=== PATIENT | male | born 1985 | race Caucasian/White ===

== ENCOUNTER 2021-01-14 12:56 | Emergency (ER) | payer BC, SELFPAY ==
[2021-01-14 13:00] VITALS: BP 136/80; PULSE 68; RESP 18; TEMP 36.9; O2SAT 100; BMI 28.2
--- NOTE | 2021-01-14 14:02 | HMH.EDUTC ---
[facility] [place] Disposition Clinical Impression: Shingles rash Qualifiers: Herpes zoster complications: without complications Qualified Code(s): B02.9 - Zoster without complications Disposition: Home, Self-Care Condition on Discharge: Good Instructions: DI for Shingles, Shingles, Acyclovir Additional Instructions: Take medication as prescribed Make sure to follow up with your Family Doctor if no improvement or any worsening of symptoms Avoid ladies while you are having an outbreak Return if needed Straight to ER if any life threatening symptoms Prescriptions: Acyclovir 800 mg PO 5XDAY 7 Days #35 tab Transmission Status: Pending to [facility] Referrals: Shahid Moreira MD [Primary Care Provider] - As needed Time of Disposition: 14:12 Medical Decision Making - Anderson Inquiry Pt receiving controlled substance: No Anderson was queried for this patient: No Vital Signs: 01/14/21 13:00 Temperature 98.4 F Temperature Source Oral Pulse Rate [Right Brachial] 68 Respiratory Rate 18 Blood Pressure [Right Arm] 136/80 Blood Pressure Mean [Right Arm] 98 Blood Pressure Source [Right Arm] Automatic Cuff Blood Pressure Position [Right Arm] Sitting 02 Sat by Pulse Oximetry 100 Oxygen Delivery Method Room Air [facility] [place] HPI - General Stated complaint: possible shingles Time Seen by Provider: 01/14/21 14:02 Mode of Arrival: Ambulatory Source of Information: Patient Limitations: No Limitations Description of Symptoms (Recalled from Triage Doc. by RN): PATIENT C/O SCABS TO SIDE X 3 DAYS HEENT Symptoms (Recalled from RN notes): No Resp Symptoms (Recalled from RN notes): No Skin Symptoms (Recalled from RN notes): Yes MS Symptoms (Recalled from RN notes): No Functional Status (Recalled from RN notes): WNL - History of Present Illness Provider Complaint: Patient states that he noticed he was breaking out in rash on his right side that looked blistery and hurts when he touches, scratches it or his shirt touches it States that and it is sore States that thinks it may be shingles coming out and he has never had it - Related Data Previous Rx's Medication Instructions Recorded Acyclovir 800 mg PO 5XDAY 7 Days #35 tab 01/14/21 Allergies Allergy/AdvReac Type Severity Reaction Status Date / Time No Known Allergies Allergy Verified 06/04/20 10:26 - Worker's Comp Is this a Worker's Comp case?: No [facility] History - Hepatitis A Screen Drug use history?: No High risk sexual behaviors?: No History of sexually transmitted infection?: No Currently employed?: No Childcare worker?: No Do you have indoor plumbing?: Yes Do you have electricity?: Yes Attestation statement:: This patient has been screened for Hepatitis A risk factors. I have reviewed the patient's past medical history: Yes Medical History: Reports:: Hypertension Other Surgeries: Yes: Appendectomy Amputation: No Fractures: No - Social History Smoking Status: Never smoker Alcohol Intake: never Substance Use Type: denies use Occupational Status: employed Housing: house Family Hx:: No significant family history ROS Obtained: Yes All systems reviewed & no additional complaints, Yes Systems reviewed as appropriate & no additional complaints - Constitutional Constitutional: Reports system reviewed and no additional complaints, except as docu, Denies body ache, Denies chills, Denies fever(s) - ENT Ears, Nose, Mouth, and Throat: Reports system reviewed and no additional complaints, except as docu - Cardiovascular Cardiovascular: Reports system reviewed and no additional complaints, except as docu - Respiratory Respiratory: Reports system reviewed and no additional complaints, except as docu - Gastrointestinal Gastrointestingal: Reports: system reviewed and no additional complaints, except as docu - Musculoskeletal Musculoskeletal: Reports system reviewed and no additional complaints, except as docu - Integumentary/Breasts Skin/Patricia
[2021-01-14 14:25] VITALS: BP 136/80; PULSE 68; RESP 18; TEMP 36.9; O2SAT 100
== END 2021-01-14 14:32 | disposition home or self-care (01) ==
PROVIDERS: Emergency Provider Nurse Practitioner; PCP Family Medicine
DX: B02.9 Zoster without complications (principal)
CPT/HCPCS: 99202; G0463

== ENCOUNTER 2021-02-08 19:02 | Emergency (ER) | payer BC, SELFPAY ==
[2021-02-08 20:03] VITALS: BP 146/101; PULSE 78; RESP 18; TEMP 36.9; O2SAT 99; BMI 29.8
[2021-02-08 20:23] VITALS: BP 146/101; PULSE 78; RESP 18; TEMP 36.9
[2021-02-08 20:27] LABS: UTC Strep Screen (Rapid) Positive (Negative)
--- NOTE | 2021-02-08 20:55 | HMH.EDUTC ---
[facility] [place] [place] Disposition Clinical Impression: Strep throat Disposition: Home, Self-Care Condition on Discharge: Good Instructions: DI for Strep Throat Additional Instructions: Drink plenty of fluids. Take tylenol or ibuprofen for pain or fever. Take the medications as directed. Follow up with your regular doctor. GO TO THE ER FOR ANY WORSENING SYMPTOMS Throw your tooth brush away and get a new one. Prescriptions: Ondansetron [Zofran 4mg ODT] 4 mg PO Q8HP PRN #20 tab PRN Reason: Nausea Transmission Status: Received by [facility] Amoxicillin/Potassium Clav [Augmentin 875-125 Tablet] 1 tab PO Q12H 10 Days #20 tab Transmission Status: Received by [facility] Referrals: Sherif Cody MD [Primary Care Provider] - Forms: Work/School Release Time of Disposition: 20:58 Medical Decision Making - Medical Records Medical records reviewed: No: I reviewed the patient's medical records. - Anderson Inquiry Pt receiving controlled substance: No Vital Signs: 02/08/21 20:03 02/08/21 20:23 Temperature 98.4 F 98.4 F Temperature Source Oral Pulse Rate 78 Pulse Rate [Left] 78 Respiratory Rate 18 18 Blood Pressure 146/101 H Blood Pressure [Right Arm] 146/101 H Blood Pressure Mean [Right Arm] 116 02 Sat by Pulse Oximetry 99 - Lab Data Lab results reviewed: Yes: I reviewed the patient's lab results. Lab Results 02/08/21 20:27: Strep Scn Rapid [facility] Positive A Orders (Tests/Meds): ED MEDICATIONS Discontinued Medications Generic Name Dose Route Start Last Admin Trade Name Freq PRN Reason Stop Dose Admin Ondansetron HCl 4 mg 02/08/21 20:54 02/08/21 20:59 Ondansetron 4mg Odt SL 02/08/21 20:55 4 mg ONCE ONE Administration [facility] [place] [place] HPI - General Stated complaint: sore throat,cpugh,vomitinh,abd pain.ongestion Time Seen by Provider: 02/08/21 20:55 Mode of Arrival: Ambulatory Source of Information: Patient Limitations: No Limitations Description of Symptoms (Recalled from Triage Doc. by RN): pt c/o cough, congestion and sore throat. HEENT Symptoms (Recalled from RN notes): Yes (congestion and sore throat) Resp Symptoms (Recalled from RN notes): Yes (cough) Skin Symptoms (Recalled from RN notes): No MS Symptoms (Recalled from RN notes): No Functional Status (Recalled from RN notes): wnl - History of Present Illness Provider Complaint: He c/o sore throat and feeling bad for the past 2 days. He has had n/v/d also today. He has had chilling but no documented fever. - Related Data Previous Rx's Medication Instructions Recorded Acyclovir 800 mg PO 5XDAY 7 Days #35 tab 01/14/21 Amoxicillin/Potassium Clav 1 tab PO Q12H 10 Days #20 tab 02/08/21 [Augmentin 875-125 Tablet] Ondansetron [Zofran 4mg ODT] 4 mg PO Q8HP PRN #20 tab 02/08/21 Allergies Allergy/AdvReac Type Severity Reaction Status Date / Time No Known Allergies Allergy Verified 06/04/20 10:26 - Worker's Comp Is this a Worker's Comp case?: No [facility] History - Hepatitis A Screen Drug use history?: No High risk sexual behaviors?: No History of sexually transmitted infection?: No Currently employed?: No Childcare worker?: No Do you have indoor plumbing?: Yes Do you have electricity?: Yes Attestation statement:: This patient has been screened for Hepatitis A risk factors. I have reviewed the patient's past medical history: Yes Medical History: Reports:: Hypertension Other Surgeries: Yes: Appendectomy Amputation: No Fractures: No - Social History Smoking Status: Never smoker Alcohol Intake: never Substance Use Type: denies use Occupational Status: employed Housing: house Family Hx:: No significant family history ROS Obtained: Yes All systems reviewed & no additional complaints - Constitutional Constitutional: Reports as per HPI - Eyes Eyes: Denies eye discharge - ENT Ears, Nose, Mouth, and Throat: Reports as per HPI - Cardiovascular Cardiovascular: De
--- NOTE | 2021-02-10 12:47 | PC.NURSE ---
attempted to reach about positive covid test results, unable to reach at this time.
== END 2021-02-08 21:15 | disposition home or self-care (01) ==
PROVIDERS: Emergency Provider Nurse Practitioner Family; PCP Emergency Medicine
DX: U07.1 COVID-19 (principal); J02.0 Streptococcal pharyngitis
CPT/HCPCS: 87880; 99203; C9803; G0463; U0003; U0005

== ENCOUNTER 2021-02-11 16:42 | Emergency (ER) | payer BC, SELFPAY ==
[2021-02-11 16:43] VITALS: BP 138/98; PULSE 98; RESP 16; TEMP 38.7; O2SAT 98; BMI 29.8
--- NOTE | 2021-02-11 17:13 | HMH.EDFEV ---
ED Disposition Clinical Impression: Gastroenteritis, COVID-19 Disposition: Home, Self-Care Condition on Discharge: Good Instructions: DI for COVID-19 (Suspected or Confirmed ) Prescriptions: Ondansetron [Zofran 4mg ODT] 4 mg PO BIDP PRN #10 tab PRN Reason: Nausea Transmission Status: Pending to [facility] Referrals: Sherif Cody MD [Primary Care Provider] - - Critical Care Critical Care Time: No Attestation: On 02/11/21, the high probability of a clinically significant, sudden or life threatening deterioration of the following system(s) required my full and direct attention, intervention and personal management. The time I documented below is in addition to time spent performing reported procedures but includes the following listed in this critical care notation. Medical Decision Making - Medical Records Medical records reviewed: Yes: I reviewed the patient's medical records. - Anderson Inquiry Pt receiving controlled substance: No Vital Signs: 02/11/21 16:43 Temperature 101.7 F H Temperature Source Oral Pulse Rate [Radial] 98 H Respiratory Rate 16 Blood Pressure [Right Arm] 138/98 H Blood Pressure Mean [Right Arm] 111 Blood Pressure Position [Right Arm] Sitting 02 Sat by Pulse Oximetry 98 Oxygen Delivery Method Room Air Orders (Tests/Meds): ED MEDICATIONS Generic Name Dose Route Start Last Admin Trade Name Freq PRN Reason Stop Dose Admin Sodium Chloride 1,000 mls @ 999 mls/hr 02/11/21 17:15 02/11/21 17:22 Sod Chlor 0.9% 1000ml Bag IV 02/11/21 18:15 999 mls/hr .Q1H1M JOHANA Administration Discontinued Medications Generic Name Dose Route Start Last Admin Trade Name Freq PRN Reason Stop Dose Admin Ketorolac Tromethamine 30 mg 02/11/21 17:10 02/11/21 17:21 Ketorolac 30mg/Ml Vial IV 02/11/21 17:11 30 mg ONCE ONE Administration Ondansetron HCl 4 mg 02/11/21 17:10 02/11/21 17:21 Ondansetron 4mg/2ml Vial IV 02/11/21 17:11 4 mg ONCE ONE Administration - Reevaluation(s) Time: 18:15 Reevaluation #1: On reevaluation, patient is feeling much better. There is no respiratory distress. No desaturation with ambulation. Repeat abdominal exam is benign. Patient tolerating oral intake. He is to maintain quarantine guidelines per CDC recommendation. Needs follow-up with PCP in 48 hours. Given strict return precautions. Verbalized understanding. Medical Decision Narrative: 35-year-old male presented to the emergency department with coronavirus diagnosis. The patient is currently febrile. He has no respiratory distress or hypoxia. Patient be treated symptomatically and reevaluated. Fever HPI - General Chief Complaint: Fever Stated Complaint: Cov+, Vomiting, feverr Time Seen by Provider: 02/11/21 16:45 Mode of Arrival: Ambulatory Limitations: No Limitations Description of Symptoms (Recalled from ER Triage Doc. by RN): to ed per pvt car pt states seen 02/08 dx with covid and strep throat states I don't feel any better . c/o fever, chills, nausea, vomiting. states he has been unable to keep down fluids. - History of Present Illness HPI Narrative: This is a 35-year-old male presented to the emergency department with some flulike symptoms. The patient states that he was diagnosed with Covid 4 days ago. He was also diagnosed with strep throat at that time. The patient was placed on amoxicillin. He states that he just not has felt well since then. The patient has had some nausea, vomiting. Feels he cannot keep anything down. He has low energy. He has had some full body myalgias. Patient endorses a mild cough, however no productive nature. Is not having any significant shortness of breath or respiratory distress. Had some subjective fevers and chills. Denies any headache or change in vision. No focal weakness. No neck pain. - Related Data Previous Rx's Medication Instructions Recorded Acyclovir 800 mg PO 5XDAY 7 Days #35 tab
[2021-02-11 17:15] VITALS: BP 137/85; PULSE 92; O2SAT 98
[2021-02-11 18:00] VITALS: BP 133/79; PULSE 81; O2SAT 95
[2021-02-11 18:30] VITALS: BP 123/74; PULSE 89; RESP 20; TEMP 38.1; O2SAT 98
== END 2021-02-11 18:32 | disposition home or self-care (01) ==
PROVIDERS: Emergency Provider Emergency Medicine; PCP Emergency Medicine
DX: K52.9 Noninfective gastroenteritis and colitis, unspecified (principal); U07.1 COVID-19
CPT/HCPCS: 96365; 96375; 99281; J2405

== ENCOUNTER → 2021-02-18 13:16 | Outpatient (CLI) | payer BC, SELFPAY | PROVIDERS: PCP Emergency Medicine; Visit Provider Nurse Practitioner | DX: Z20.822 Contact with and (suspected) exposure to COVID-19 (principal) | CPT/HCPCS: C9803; U0003; U0005 ==

== ENCOUNTER 2022-05-20 17:12 | Emergency (ER) | payer BC, SELFPAY ==
[2022-05-20 17:45] VITALS: BP 139/99; PULSE 74; RESP 20; TEMP 36.8; O2SAT 97; BMI 30.8
[2022-05-20 18:02] LABS: UTC Strep Screen (Rapid) Positive (Negative)
--- NOTE | 2022-05-20 18:07 | EXP.UTC ---
Discharge Plan Disposition Patient Disposition: Home, Self-Care Condition: Good Prescriptions Prescriptions: New prednisone 10 mg tablet 10 mg PO BID 3 Days Qty: 6 0RF amoxicillin [amoxicillin] 875 mg tablet 875 mg PO Q12H Qty: 20 0RF benzonatate [benzonatate] 100 mg capsule 100 mg PO TIDP PRN (Reason: Cough) Qty: 30 0RF Referrals Follow up/Referrals: Sherif Cody MD [Primary Care Provider] - See instructions Activity Restrictions/Add. Instructions Additional Instructions/Restrictions: Drink plenty of fluids. Take tylenol or ibuprofen for pain or fever. Take the medications as directed. Follow up with your regular doctor. GO TO THE ER FOR ANY WORSENING SYMPTOMS Throw your tooth brush away and get a new one. Clinical Impressions Clinical Impression: Strep throat Instructions Patient Instructions: Strep Throat, DI for Strep Throat Discharge ED Provider: [facility] [place] HPI General Stated complaint: sore throat, cough, h/a, congestion Mode of Arrival: Ambulatory Source of Information: Patient Limitations: No Limitations Time Seen by Provider: 05/20/22 18:07 Description of Symptoms (Recalled from Triage Doc. by RN): sore throat HEENT Symptoms (Recalled from RN notes): Yes Resp Symptoms (Recalled from RN notes): No Skin Symptoms (Recalled from RN notes): No MS Symptoms (Recalled from RN notes): No Functional Status (Recalled from RN notes): n/a History of Present Illness Provider Complaint: he states that for the past 3 days he has had a very sore throat. Related Data Previous Rx's Medication Instructions Recorded amoxicillin 875 mg tablet 875 mg PO Q12H #20 tabs 05/20/22 benzonatate 100 mg capsule 100 mg PO TIDP PRN Cough #30 caps 05/20/22 prednisone 10 mg tablet 10 mg PO BID 3 days #6 tabs 05/20/22 Allergies Allergy/AdvReac Type Severity Reaction Status Date / Time No Known Allergies Allergy Verified 05/20/22 18:02 Worker's Comp Is this a Worker's Comp case?: No [facility] Disclaimer: The information contained in this section may have been updated after the patient was seen, as this information can be updated by other users. Social History Smoking Status: Never smoker alcohol intake: never substance use type: denies use current occupational status: employed Travel in the last 8 weeks: None housing: house ROS Obtained: Yes All systems reviewed & no additional complaints except as documented Constitutional Constitutional: Reports chills and Reports fever(s) Eyes Eyes: Denies eye discharge ENT Ears, Nose, Mouth, and Throat: Reports as per HPI Cardiovascular Cardiovascular: Denies chest pain Respiratory Respiratory: Denies chest congestion and Reports cough Gastrointestinal Gastrointestingal: Reports nausea; Denies abdominal pain, constipation, cramping, diarrhea or vomiting Musculoskeletal Musculoskeletal: Denies arthralgias Integumentary/Breasts Skin/Breast: Denies rash Neurologic Neurologic: Denies paresthesias Physical Exam General General appearance: alert and in no apparent distress Head Head exam: atraumatic, normocephalic and normal inspection Eye Eye exam: Present normal appearance, PERRL and EOMI ENT ENT exam: Present mucous membranes moist and normal external ear exam Expanded ENT Exam TM/Canal exam: Bilateral TM: erythema and bulging Nose exam: Absent sinus tenderness Mouth exam: Present normal external inspection; Absent drooling Teeth exam: Present normal inspection Throat exam: Present tonsillar erythema, tonsillomegaly and tonsillar exudate Neck Neck exam: Present normal inspection, full ROM and trachea midline; Absent tenderness, meningismus or lymphadenopathy Chest Chest inspection: Present normal inspection and symmetric chest wall rise; Absent tenderness Respiratory Respiratory exam: Present normal lung sounds bilaterally; Absent respiratory distress,
[2022-05-20 18:47] VITALS: BP 139/99; PULSE 74; RESP 20; TEMP 36.8; O2SAT 97
== END 2022-05-20 18:46 | disposition home or self-care (01) ==
PROVIDERS: Emergency Provider Nurse Practitioner Family; PCP Emergency Medicine
DX: J02.0 Streptococcal pharyngitis (principal); R51.9 Headache, unspecified; R11.0 Nausea; R50.9 Fever, unspecified
CPT/HCPCS: 87880; 99212; 99214; G0463

== ENCOUNTER → 2022-06-01 15:33 | Outpatient (CLI) | payer BC, SELFPAY ==
[2022-06-01 15:02] LABS: Alanine Aminotransferase 29 U/L (12-78); Albumin Level 4.3 g/dl (3.5-5.0); Albumin/Globulin Ratio 1.6 (1.1-1.8); Alkaline Phosphatase 141 U/L (38-126); Anion Gap 8.9 mEq/L (5-15); Aspartate Amino Transferase 33 U/L (17-59); Bilirubin,Total 0.6 mg/dl (0.2-1.3); Blood Urea Nitrogen 9 mg/dl (9-20); Calcium 8.5 mg/dl (8.4-10.2); Carbon Dioxide 29 mmol/L (22.0-30.0); Chloride 104 mmol/L (98-107); Estimated Glomerular Filt Rate 94 ml/min (>60); GFR (African American) 114 ML/MIN (>60); Globulin 2.7 g/dL (1.3-3.2); Glucose 98 mg/dl (74-100); Potassium 4.9 mmoL/L (3.5-5.1); Sodium 137 mmol/L (136-145)
[2022-06-01 15:21] LABS: Basophils # 0.1 K/mm3 (0-0.2); Basophils % 1.2 % (0.1-2.0); Eosinophils # 0.2 K/mm3 (0.0-0.4); Eosinophils % 3.2 % (0.1-12.0); Hematocrit 48.5 % (42.0-52.0); Hemoglobin 16.1 g/dL (14.1-18.0); Lymphocytes # 1.9 K/mm3 (0.7-4.5); Lymphocytes % 29.3 % (10-50); Mean Corpuscular HGB Conc 33.1 g/dL (31.8-35.4); Mean Corpuscular Hemoglobin 28.6 pg (27.0-31.2); Mean Corpuscular Volume 86.3 fl (80-94); Mean Platelet Volume 13.5 fl (7.4-10.4); Monocytes # 0.5 K/mm3 (0.1-1.0); Monocytes % 7.8 % (1.7-9.3); Neutrophils # 3.7 K/mm3 (1.8-7.8); Neutrophils % 58.5 % (37.0-80.0); Platelet Count 174 K/mm3 (142-424); Red Blood Count 5.62 M/mm3 (4.60-6.20); Red Cell Distribution Width 13.4 % (11.5-17.5); White Blood Count 6.3 K/mm3 (4.8-10.8)
== END ==
LOC: LAB.DROPOF 15:34
PROVIDERS: PCP Nurse Practitioner Family; Visit Provider Nurse Practitioner Family
DX: R53.83 Other fatigue (principal)
CPT/HCPCS: 80053; 85025

== ENCOUNTER 2023-10-23 17:43 | Emergency (ER) | payer BC, SELFPAY ==
[2023-10-23 18:30] VITALS: BP 144/93; PULSE 63; RESP 19; TEMP 36.7; O2SAT 99; BMI 31.1
--- NOTE | 2023-10-23 18:45 | EXP.UTC ---
Discharge Plan Disposition Patient Disposition: Home, Self-Care Condition: Good Prescriptions Prescriptions: New amoxicillin 875 mg tablet 875 mg PO Q12H Qty: 20 0RF fluticasone propionate [Flonase Allergy Relief] 50 mcg/actuation spray,suspension 1 - 2 spray intranasal DAILY Qty: 16 0RF Rx Instructions: administer into each nostril daily No Action escitalopram oxalate [Lexapro] 20 mg tablet 20 mg PO DAILY Qty: 30 2RF hydroxyzine pamoate 25 mg capsule See Rx Instructions .ROUTE .COMPLEX Qty: 60 0RF Dose Instruction: TAKE 1 CAPSULE BY MOUTH THREE TIMES A DAY NEEDED FOR ITCHING MAY CAUSE DROWSINESS Rx Instructions: TAKE 1 CAPSULE BY MOUTH THREE TIMES A DAY NEEDED FOR ITCHING MAY CAUSE DROWSINESS Referrals Follow up/Referrals: Provider,Referral, MD [Primary Care Provider] - See instructions Activity Restrictions/Add. Instructions Additional Instructions/Restrictions: *Monitor Temp, Over the counter Motrin or Tylenol as directed/as needed Tylenol every 4 hours and Motrin every 6 hours (as long as your family doctor has told you that you can take it) for fever or pain. and straight to ER if unable to lower temp less than 101.0 after medication given *Warm salt water gargles may help to soothe the throat *Throat Lozenges? *Warm fluids like tea with honey may help to soothe the throat? *Sleep elevated *Humidifier/Vaporizer *If you did not take Penicillin shot or was unable to, start taking antibiotic immediately and make sure that you take it for the FULL length of time although you should start to feel better in 24-48 hours *change toothbrush and toothpaste 24-48 hours after starting to take antibiotics so you do not reinfect yourself Monitor Temp. Tylenol and/or Ibuprofen as needed. ER if fever is no less than 101 despite alternating Tylenol and Ibuprofen * Encourage fluids, water, Gatorade, powerade, pedialyte if /toddler/or child *Cold fluids, popsicles and ice cream may feel good on his throat Follow up IMMEDIATELY for new or worsening symptoms or no Noticeable improvement over the next 48-72 hours. 911 for difficulty breathing or swallowing Clinical Impressions Clinical Impression: Strep throat Instructions Patient Instructions: Strep Throat, DI for Strep Throat, Amoxicillin Print Language Print Language: Greenlandic Discharge ED Provider: Gilda Be [facility] [place] HPI General Stated complaint: sore throat diff swallowing Time Seen by Provider: 10/23/23 18:45 History of Present Illness Provider Complaint: Patient states his daughter tested positive for Strep throat over the weekend and now he has started with sore scratchy throat and hurting when he swallows feels like he may have it now also so this evening when he was still not feeling any better he came in to get checked Related Data Previous Rx's ?Medication ?Instructions ?Recorded escitalopram oxalate 20 mg tablet 20 mg PO DAILY #30 tabs 02/09/23 (Lexapro) hydroxyzine pamoate 25 mg capsule See Rx Instructions .Route 03/24/23 .COMPLEX #60 caps amoxicillin 875 mg tablet 875 mg PO Q12H #20 tabs 10/23/23 fluticasone propionate 50 1 - 2 spray intranasal DAILY #16 10/23/23 mcg/actuation nasal grams spray,suspension (Flonase Allergy Relief) Allergies Allergy/AdvReac Type Severity Reaction Status Date / Time No Known Allergies Allergy Verified 02/09/23 15:51 [facility] Disclaimer: The information contained in this section may have been updated after the patient was seen, as this information can be updated by other users. Medical History Gastroenteritis Immunization due Shingles rash Strep throat Social History Smoking Status: Never smoker alcohol intake: never substance use type: denies use current occupational status: employed Travel in the last 8 weeks: None housing: house ROS Obtained: Yes All systems reviewed & no additional complaints except as documented and Yes Systems reviewed as appropriate & no additional complaints except as documented Constitutional Constitutional: Reports system reviewed and no additional complaints, except as documented and Reports as per HPI ENT Ears, Nose, Mouth, and Throat: Reports system reviewed and no additional complaints, except as documented, Reports as per HPI, Reports nasal congestion, Reports nasal discharge and Reports sore throat Cardiovascular Cardiovascular: Reports system reviewed and no additional complaints, except as documented and Reports as per HPI Respiratory Respiratory: Reports system reviewed and no additional complaints, except as documented and Reports as per HPI Gastrointestinal Gastrointestingal: Reports system reviewed and no additional complaints, except as documented and as per HPI Physical Exam General General appearance: alert and in no apparent distress ENT ENT exam: Present mucous membranes moist Expanded ENT Exam Throat exam: Present other (Pharyngeal erythema noted with PND) Respiratory Respiratory exam: Present normal lung sounds bilaterally; Absent respiratory distress or wheezes Cardiovascular Cardiovascular exam: Present regular rate, normal rhythm and normal heart sounds Neurological Exam Neurological exam: Present alert, oriented X3 and normal gait Medical Decision Making Anderson Inquiry Pt receiving controlled substance: No Anderson was queried for this patient: No Lab Data Lab results reviewed: Yes I reviewed the patient's lab results.
[2023-10-23 18:50] LABS: UTC Strep Screen (Rapid) Positive (Negative)
[2023-10-23 18:51] VITALS: BP 144/93; PULSE 63; RESP 19; TEMP 36.7; O2SAT 99
== END 2023-10-23 18:56 | disposition home or self-care (01) ==
PROVIDERS: Emergency Provider Nurse Practitioner
DX: J02.0 Streptococcal pharyngitis (principal); R07.0 Pain in throat
CPT/HCPCS: 87880; 99212; 99214; G0463